=== PATIENT | female | born 1935 | race Caucasian/White ===

== ENCOUNTER 2017-01-30 06:44 | Day surgery (SDC) | payer MEDICARE, BC ==
[~2017-01-30 06:44] MED LIST: Lactated Ringers 1,000 ML IV SCH; Lidocaine 1%/Sod Bicarbonate in NS 8.4% 1 ML Syringe PRN; Sodium Chloride 0.9% 10 ML Syringe FLUSH PRN
[2017-01-30] MEDS ORDERED: Lidocaine 1% 4 ML ONE (07:19)
[2017-01-30] MEDS ORDERED: Ondansetron 4 MG/2 ML SDV ONE (07:19)
[2017-01-30] MEDS ORDERED: fentaNYL 100 MCG/2 ML SDV ONE (07:20)
[2017-01-30] MEDS ORDERED: Propofol 200 MG/20 ML SDV ONE ×2 (07:20→09:09)
--- NOTE | 2017-01-30 07:38 | PCM.PREANE ---
Preanesthetic Assessment - Procedure Proposed Procedure: EGD Colonoscopy - Anesthesia/Transfusion/Family Hx Anesthesia History: Prior Anesthesia Without Reaction Family History of Anesthesia Reaction: No - Review of Systems General: No Symptoms Pulmonary: No Symptoms Cardiovascular: No Symptoms Gastrointestinal: No Symptoms Neurological: No Symptoms Other: Reports: Easy Bruising - Physical Assessment NPO Status Date: 01/29/17 NPO Status Time: 21:45 O2 Sat by Pulse Oximetry: 97 Respiratory Rate: 16 Vital Signs: Last Vital Signs Temp 36.6 C 01/30/17 07:00 Pulse 63 01/30/17 07:00 Resp 16 01/30/17 07:00 BP 141/63 H 01/30/17 07:00 Pulse Ox 97 01/30/17 07:00 Height: 1.6 m Weight: 77.564 kg ASA Class: 3 Mental Status: Alert & Oriented x3 Airway Class: Mallampati = 2 Dentition: Reports: Normal Dentition Thyro-Mental Finger Breadths: 2 Mouth Opening Finger Breadths: 2 ROM/Head Extension: Full Lungs: Clear to Auscultation, Normal Respiratory Effort Cardiovascular: Regular Rate, Regular Rhythm - Lab Values: Reviewed - Allergies Allergies/Adverse Reactions: Allergies Allergy/AdvReac Type Severity Reaction Status Date / Time propoxyphene HCl Allergy Anaphylactic Verified 01/27/17 10:24 [From Darvon] Shock Penicillins AdvReac Syncope Verified 01/27/17 11:04 - Anesthesia Plan Pre-Op Medication Ordered: None Beta Debby: Metoprolol Med Last Dose Date: 01/30/17 Med Last Dose Time: 06:00 - Acknowledgements Anesthesia Type Planned: MAC Pt an Appropriate Candidate for the Planned Anesthesia: Yes Alternatives and Risks of Anesthesia Discussed w Pt/Guardian: Yes Pt/Guardian Understands and Agrees with Anesthesia Plan: Yes PreAnesthesia Questionnaire HEENT History: Reports: Other (See Below) Other HEENT History: wears glasses Cardiovascular History: Reports: CAD, High Cholesterol, Hypertension, Stents Respiratory History: Reports: None Gastrointestinal History: Reports: Diverticulosis, GERD, Hemorrhoids Genitourinary History: Reports: Urinary Incontinence, Other (See Below) Other Genitourinary History: nocturia [employer] History: Reports: None Musculoskeletal History: Reports: Arthritis Psychiatric History: Reports: Other (See Below) Other Psychiatric History: insomnia Endocrine/Metabolic History: Reports: None Hematologic History: Reports: None Immunologic History: Reports: None Oncologic (Cancer) History: Reports: Breast Dermatologic History: Reports: None - Past Surgical History Head Surgeries/Procedures: Reports: None HEENT Surgical History: Reports: Cataract Surgery Respiratory Surgical History: Reports: None GI Surgical History: Reports: Cholecystectomy, Colonoscopy, Hernia Repair/Other Female Surgical History: Reports: Hysterectomy, Other (See Below) Other Female Surgeries/Procedures: bladder sling Endocrine Surgical History: Reports: None Neurological Surgical History: Reports: Spinal Fusion Other Neurological Surgeries/Procedures: c1c2 fusion Musculoskeletal Surgical History: Reports: Other (See Below) Other Musculoskeletal Surgeries/Procedures:: pelvic fracture, L1-L5 surgeryc, L 2nd finger joint replacement, bilateral total knee replacements, bilateral shoulder rotator cuff repairs, hammer toe correction, R thumb tendon surgery, ulnar nerve transposition Oncologic Surgical History: Reports: Mastectomy Dermatological Surgical History: Reports: None - SUBSTANCE USE Smoking Status *Q: Never Smoker Second Hand Smoke Exposure: No Days Per Week of Alcohol Use: 0 Recreational Drug Use History: No - HOME MEDS Home Medications: Home Meds Aspirin [Tobin Chewable Aspirin] 81 mg PO DAILY 09/25/13 [History] Clopidogrel [Plavix] 75 mg PO DAILY 09/25/13 [History] Desipramine 10 mg PO BEDTIME 09/25/13 [History] Fluticasone Propionate [Flonase] 50 mcg ZAIN DAILY 09/25/13 [History] Hydrochlorothiazide 25 mg PO DAILY 09/25/13 [History] Losartan [Cozaar] 50 mg PO DAILY 09/25/13 [History] Magnesium Chloride [Mag-64] 1 tab-cap PO DAILY 09/25/13 [History] Multivitamin [Multivitamins] 1 each PO DAILY 09/25/13 [History] Potassium Chloride [Klor-Con 10] 20 meq PO BID 09/25/13 [History] Tolterodine Tartrate [Detrol LA] 4 mg PO DAILY 09/25/13 [History] Ubidecarenone [Coenzyme Q10] 100 mg PO DAILY 09/25/13 [History] Zoledronic Acid in Water [Reclast] 1 ampule IV ASDIRECTED 09/25/13 [History] traZODone 150 mg PO BEDTIME 09/25/13 [History] Metoprolol Succinate [Toprol XL] 25 mg PO DAILY 10/23/13 [History] Cholecalciferol (Vitamin D3) [Vitamin D3] 1,000 unit PO DAILY 01/27/17 [History] Levothyroxine [Synthroid] 50 mcg PO DAILY 01/27/17 [History] Rosuvastatin [Crestor] 5 mg PO DAILY 01/27/17 [History] - CURRENT (IN HOUSE) MEDS Current Meds: Current Medications Lactated Ringer's (Ringers, Lactated) 1,000 mls @ 125 mls/hr IV ASDIRECTED PATY Stop: 01/30/17 23:00 Last Admin: 01/30/17 07:10 Dose: 125 mls/hr Lidocaine/Sodium Bicarbonate (Buffered Lidocaine 1% In Ns 8.4%) 0.25 ml .XX ONETIME PRN PRN Reason: Prior to IV Start Stop: 01/30/17 18:00 Last Admin: 01/30/17 07:10 Dose: 0.25 ml Sodium Chloride (Saline Flush) 10 ml FLUSH ASDIRECTED PRN PRN Reason: Keep Vein Open Stop: 01/30/17 18:00 Discontinued Medications Fentanyl (Sublimaze) Confirm Administered Dose 100 mcg .ROUTE .STK-MED ONE Stop: 01/30/17 07:21 Lidocaine HCl (Xylocaine-Mpf 1%) Confirm Administered Dose 4 mls @ as directed .ROUTE .STK-MED ONE Stop: 01/30/17 07:20 Ondansetron HCl (Zofran) Confirm Administered Dose 4 mg .ROUTE .STK-MED ONE Stop: 01/30/17 07:20 Propofol (Diprivan 20 Ml) Confirm Administered Dose 400 mg .ROUTE .STK-MED ONE Stop: 01/30/17 07:21
--- NOTE | 2017-01-30 09:17 | PCM.OPNOTE ---
- General Post-Op/Procedure Note Date of Surgery/Procedure: 01/30/17 Operative Procedure(s): EGD with bx and colonoscopy with polypectomy Pre Op Diagnosis: nausea and rectal bleeding Post-Op Diagnosis: Same Anesthesia Technique: MAC Primary Surgeon: Terry Pemberton EBL in mLs: 0 Complications: None Condition: Good
--- NOTE | 2017-01-30 09:26 | PCM48HPAN ---
Post Anesthesia Note - EVALUATION WITHIN 48HRS OF ANESTHETIC Vital Signs in Normal Range: Yes Patient Participated in Evaluation: Yes Respiratory Function Stable: Yes Airway Patent: Yes Cardiovascular Function Stable: Yes Hydration Status Stable: Yes Pain Control Satisfactory: Yes Nausea and Vomiting Control Satisfactory: Yes Mental Status Recovered: Yes
[2017-01-30 09:32] VITALS: BP 114/38
[2017-01-30] MEDS ORDERED: Lactated Ringers 1,000 ML ONE (09:36)
--- NOTE | 2017-01-30 13:46 | OR ---
DATE OF OPERATION: 01/30/2017 SURGEON: Terry Pemberton MD PREOPERATIVE DIAGNOSIS: Rectal bleeding. POSTOPERATIVE DIAGNOSIS: Rectal bleeding. OPERATION PERFORMED: Colonoscopy to cecum with removal of a diminutive polyp in the ascending colon. FINDINGS: There was a diminutive polyp in the ascending colon. There was no angiodysplasias, large tumor masses, ulcerations, diverticulum, or notable hemorrhoids. ANESTHESIA: Procedure was done under IV sedation. DESCRIPTION OF PROCEDURE: The patient was taken to the endoscopy room, having been connected to monitoring equipment for upper GI endoscopy and given IV sedation, this was continued for colonoscopy. She was placed in left lateral position. Perianal area was inspected and was normal. Rectal exam showed good sphincter tone. A video Olympus colonoscope was then introduced into the rectum and threaded up without problem to the cecum, where the appendicular orifice, ileocecal valve was noted. Prep was good. [place] [employer] score grade B with particulate matter in the cecum, some in the splenic flexure and sigmoid colon, and rectum that could not be totally aspirated. The scope was then slowly withdrawn showing the cecum, ascending colon, transverse colon, descending colon, sigmoid colon, and rectum. Retroflexed view was done. The polyp in the ascending colon, diminutive, was noted and this was lassoed with cautery snare, removed and retrieved and sent to pathology. The base was clean and it was completely removed. The patient tolerated the procedure and was sent to recovery room in a stable condition. She will be followed up with Dr. Cuellar. We will recommend that she wait 24 hours before resuming her Plavix. ESTIMATED BLOOD LOSS: MMODAL /[id number]
--- NOTE | 2017-01-30 13:46 | OR ---
DATE OF OPERATION: 01/30/2017 SURGEON: Terry Pemberton MD PREOPERATIVE DIAGNOSIS: Nausea. POSTOPERATIVE DIAGNOSIS: Nausea. OPERATION PERFORMED: Esophagogastroduodenoscopy with biopsy. FINDINGS: Large hiatal hernia. The hiatal hernia pouch has evidence of inflammation by the presence of erythema. Area of the hiatal hernia pouch was biopsied. GE junction was located at 30 cm. Did not see any pathology there. The hiatus shows incompetence. The antrum and body of the stomach have a lot of erythema suggesting chronic gastritis. Biopsies were taken of the antrum. The second portion of the duodenum, duodenal bulb, pyloric channel, and balance of the esophagus were free of any acute disease. ANESTHESIA: Procedure was done under IV sedation. DESCRIPTION OF PROCEDURE: The patient was taken to the GI room, placed in a supine position, connected to monitoring equipment, given IV sedation, and placed in left lateral position with bite block in place. A video Olympus gastroscope placed in the posterior oropharynx, under direct vision, threaded past the cricopharyngeus, down the esophagus, and into the stomach. The stomach was insufflated and the scope passed through the pylorus to the second portion of the duodenum. It was then slowly withdrawn showing normal second portion of the duodenum, the duodenal bulb, and pyloric channel. Antrum, body, and cardia of the stomach were viewed showing a lot of erythema, and this was biopsied. No acute ulcerations were seen. Also, the J-maneuver showed an incompetent hiatus and a good portion of the fundus and the cardia above the diaphragm. She had a large hiatal hernia which was fixed and scope withdrawn to the hiatal hernia pouch, which was biopsied, then followed by GE junction which was biopsied. The GE junction did not show any acute disease. Rest of the esophagus was viewed as the scope was withdrawn and was unremarkable. The patient tolerated the procedure. IV sedation will be continued for colonoscopy. Biopsy was sent to pathology in a labeled container. ESTIMATED BLOOD LOSS: MMODAL /[id number]
== END 2017-01-30 09:58 | disposition home or self-care (01) ==
LOC: JD.SDS 06:44
PROVIDERS: ATTEND Surgery
DX: D12.2 Benign neoplasm of ascending colon (principal); B33.20 Viral carditis, unspecified; I25.10 Atherosclerotic heart disease of native coronary artery without angina pectoris; I10 Essential (primary) hypertension; E78.5 Hyperlipidemia, unspecified; K21.9 Gastro-esophageal reflux disease without esophagitis; E03.9 Hypothyroidism, unspecified; Z95.5 Presence of coronary angioplasty implant and graft; Z88.0 Allergy status to penicillin; Z88.8 Allergy status to other drugs, medicaments and biological substances; Z90.49 Acquired absence of other specified parts of digestive tract; Z98.890 Other specified postprocedural states; Z96.612 Presence of left artificial shoulder joint; Z96.611 Presence of right artificial shoulder joint; Z79.82 Long term (current) use of aspirin; Z79.899 Other long term (current) drug therapy
CPT/HCPCS: 43239; 45385; J2405; J7120; 00810; 88305; J2704; J3010

== ENCOUNTER 2022-01-31 08:36 | Emergency (ER) | payer MEDICARE, BC ==
[2022-01-31] MEDS ORDERED: traMADol 50 MG Tab PO ONE (09:08)
[2022-01-31] MEDS ORDERED: Orphenadrine 100 MG Tab.ER PO STA (09:08)
[2022-01-31 12:45] VITALS: BP 160/74; PULSE 62
== END 2022-01-31 12:40 | disposition home or self-care (01) ==
LOC: JD.ED 08:36
DX: M25.562 Pain in left knee (principal); I10 Essential (primary) hypertension; E78.00 Pure hypercholesterolemia, unspecified; I25.10 Atherosclerotic heart disease of native coronary artery without angina pectoris; K21.9 Gastro-esophageal reflux disease without esophagitis; Z88.0 Allergy status to penicillin; Z88.8 Allergy status to other drugs, medicaments and biological substances; Z79.82 Long term (current) use of aspirin; Z79.01 Long term (current) use of anticoagulants; Z79.899 Other long term (current) drug therapy
CPT/HCPCS: 73562; 99283; A9270

== ENCOUNTER 2022-07-06 07:56 | Day surgery (SDC) | payer MEDICARE, BC ==
[~2022-07-06 07:56] MED LIST changes: +Lidocaine 1%/Sod Bicarbonate in NS 8.4% 1 ML Syringe IDERM PRN; -Lidocaine 1%/Sod Bicarbonate in NS 8.4% 1 ML Syringe PRN; +Sodium Chloride 0.9% 10 ML Syringe FLUSH SCH
[2022-07-06] MEDS ORDERED: Propofol 200 MG/20 ML SDV ONE ×3 (09:11→09:49)
[2022-07-06] MEDS ORDERED: Lidocaine 1% 4 ML ONE (09:12)
[2022-07-06 10:55] VITALS: BP 161/62; PULSE 60
== END 2022-07-06 10:44 | disposition home or self-care (01) ==
LOC: JD.SDS 07:56
PROVIDERS: ATTEND Surgery
DX: Z12.11 Encounter for screening for malignant neoplasm of colon (principal); D12.2 Benign neoplasm of ascending colon; D12.3 Benign neoplasm of transverse colon; K64.8 Other hemorrhoids; K21.9 Gastro-esophageal reflux disease without esophagitis; M81.0 Age-related osteoporosis without current pathological fracture; E78.5 Hyperlipidemia, unspecified; I10 Essential (primary) hypertension; I25.119 Atherosclerotic heart disease of native coronary artery with unspecified angina pectoris; M19.90 Unspecified osteoarthritis, unspecified site; D84.9 Immunodeficiency, unspecified; E78.00 Pure hypercholesterolemia, unspecified; E03.9 Hypothyroidism, unspecified; Z95.5 Presence of coronary angioplasty implant and graft; Z86.010 Personal history of colon polyps; Z80.0 Family history of malignant neoplasm of digestive organs; Z98.890 Other specified postprocedural states; Z98.1 Arthrodesis status; Z88.0 Allergy status to penicillin; Z88.5 Allergy status to narcotic agent; Z79.899 Other long term (current) drug therapy; Z90.49 Acquired absence of other specified parts of digestive tract
CPT/HCPCS: 36415; 45380; 80051; J2704; J7120; 88305

== ENCOUNTER 2022-12-04 17:17 | Emergency (ER) | payer MEDICARE, BC ==
[2022-12-04] MEDS ORDERED: Morphine 2 MG/ML SYRINGE IVPUSH ONE (17:58)
[2022-12-04 18:04] LABS: BASOPHILS ABSOLUTE AUTO 0.04 K/mm3 (0.01-0.08); BASOPHILS PERCENT AUTO 0.6 % (0.1-1.2); EOSINOPHILS ABSOLUTE AUTO 0.14 K/mm3 (0.04-0.36); EOSINOPHILS PERCENT AUTO 2.1 (0.7-5.8); HEMATOCRIT 38.1 % (34.1-44.9); HEMOGLOBIN 11.9 gm/dl (11.2-15.7); IMMATURE GRAN ABSOLUTE AUTO 0.01 K/mm3 (0.00-0.10); IMMATURE GRAN PERCENT AUTO 0.1 % (<=1.0); LYMPHOCYTES ABSOLUTE AUTO 1.56 K/mm3 (1.18-3.74); LYMPHOCYTES PERCENT AUTO 23.3 % (19.3-51.7); MEAN CORPUSCULAR HGB CONC 31.2 g/dl (32.2-35.5); MEAN CORPUSCULAR VOLUME 99.2 fl (79.4-94.8); MEAN PLATELET VOLUME 10.3 fl (9.4-12.3); MONOCYTES ABSOLUTE AUTO 0.66 K/mm3 (0.24-0.36); MONOCYTES PERCENT AUTO 9.9 % (4.7-12.5); NEUTROPHILS ABSOLUTE AUTO 4.28 K/mm3 (1.56-6.13); PLATELET COUNT,PLT 316 K/mm3 (182-369); RED BLOOD CELL COUNT 3.84 M/mm3 (3.98-5.22); WHITE BLOOD CELL COUNT,WBC 6.69 K/mm3 (3.98-10.04)
[2022-12-04 18:24] LABS: A/G RATIO 0.9 (1-2); ALBUMIN 3.3 g/dl (3.4-5.0); ANION GAP 10.2 (5-15); BILIRUBIN TOTAL 0.3 mg/dL (0.2-1.0); C-REACTIVE PROTEIN 2.4 mg/dL (<1.0); EST CRCL DRUG DOSING (CG) 29.91 mL/min; POTASSIUM,K 4.2 mEq/L (3.5-5.1); PROTEIN TOTAL,TP 7.2 g/dl (6.4-8.2)
[2022-12-04 19:50] VITALS: BP 176/67; PULSE 60
== END 2022-12-04 19:50 | disposition home or self-care (01) ==
LOC: JD.ED 17:17
DX: R07.89 Other chest pain (principal); I25.10 Atherosclerotic heart disease of native coronary artery without angina pectoris; E78.00 Pure hypercholesterolemia, unspecified; I10 Essential (primary) hypertension; K21.9 Gastro-esophageal reflux disease without esophagitis; E03.9 Hypothyroidism, unspecified; Z79.899 Other long term (current) drug therapy; Z79.82 Long term (current) use of aspirin
CPT/HCPCS: 36415; 80053; 85025; 86140; 93005; 96374; 99285; J2270; 93010; 99284

== ENCOUNTER 2022-12-12 12:53 | Observation (INO) | payer MEDICARE, BC ==
[2022-12-12] MEDS ORDERED: Sodium Chloride 0.9% 10 ML Syringe FLUSH PRN (13:39)
[2022-12-12 13:59] LABS: BASE EXCESS ARTERIAL -3.1 (-2-2.0); BICARBONATE,ARTERIAL 17.9 meq/L (22.0-26.0); O2 SATURATION ARTERIAL 96.2 % (96.0-97.0); PCO2 ARTERIAL 22.4 mmHg (35.0-45.0)
[2022-12-12] MEDS ORDERED: Lactated Ringers 1,000 ML IV ONE (14:21)
[2022-12-12] MEDS ORDERED: LORazepam 2 MG/ML SDV IVPUSH ONE (14:29)
[2022-12-12 14:51] LABS: BASOPHILS ABSOLUTE AUTO 0.03 K/mm3 (0.01-0.08); BASOPHILS PERCENT AUTO 0.4 % (0.1-1.2); EOSINOPHILS ABSOLUTE AUTO 0.02 K/mm3 (0.04-0.36); EOSINOPHILS PERCENT AUTO 0.3 (0.7-5.8); HEMATOCRIT 42.6 % (34.1-44.9); HEMOGLOBIN 13.8 gm/dl (11.2-15.7); IMMATURE GRAN ABSOLUTE AUTO 0.01 K/mm3 (0.00-0.10); IMMATURE GRAN PERCENT AUTO 0.1 % (<=1.0); LYMPHOCYTES ABSOLUTE AUTO 1.49 K/mm3 (1.18-3.74); LYMPHOCYTES PERCENT AUTO 18.9 % (19.3-51.7); MEAN CORPUSCULAR HEMOGLOBIN 31.2 pg (25.6-32.2); MEAN CORPUSCULAR HGB CONC 32.4 g/dl (32.2-35.5); MEAN CORPUSCULAR VOLUME 96.4 fl (79.4-94.8); MEAN PLATELET VOLUME 10.5 fl (9.4-12.3); MONOCYTES ABSOLUTE AUTO 0.79 K/mm3 (0.24-0.36); NEUTROPHILS ABSOLUTE AUTO 5.53 K/mm3 (1.56-6.13); NEUTROPHILS PERCENT AUTO 70.3 % (34.0-71.1); PLATELET COUNT,PLT 296 K/mm3 (182-369); RED BLOOD CELL COUNT 4.42 M/mm3 (3.98-5.22); WHITE BLOOD CELL COUNT,WBC 7.87 K/mm3 (3.98-10.04)
[2022-12-12 15:10] LABS: INR 1.07; PROTHROMBIN TIME 11.4 SECONDS (9.7-12.0)
[2022-12-12 15:21] LABS: A/G RATIO 0.8 (1-2); ALBUMIN 3.3 g/dl (3.4-5.0); ANION GAP 17.3 (5-15); BILIRUBIN TOTAL 0.4 mg/dL (0.2-1.0); BUN/CREATININE RATIO 19.1 (14-18); C-REACTIVE PROTEIN 0.2 mg/dL (<1.0); CALCIUM 9.4 mg/dL (8.5-10.1); CREATININE 1.1 mg/dL (0.55-1.02); EST CRCL DRUG DOSING (CG) 27.19 mL/min; MAGNESIUM 1.7 mg/dL (1.8-2.4); POTASSIUM,K 3.3 mEq/L (3.5-5.1); PROTEIN TOTAL,TP 7.6 g/dl (6.4-8.2); TSH 1.474 uIU/mL (0.358-3.74)
[2022-12-12 15:25] LABS: LACTIC ACID 3.7 mmol/L (0.4-2.0)
[2022-12-12] MEDS ORDERED: Ondansetron 4 MG/2 ML SDV IVPUSH ONE (15:48)
[2022-12-12 16:19] LABS: APPEARANCE,URINE CLEAR (Clear); BILIRUBIN,URINE NEGATIVE (Negative); COLOR,URINE YELLOW (Yellow); GLUCOSE,URINE NEGATIVE (Negative); KETONES,URINE NEGATIVE (Negative); LEUKOCYTE ESTERASE,URINE NEGATIVE (Negative); NITRITE,URINE NEGATIVE (Negative); OCCULT BLOOD,URINE NEGATIVE (Negative); PH,URINE 6.5 (5.0-8.0); PROTEIN,URINE NEGATIVE (Negative); UROBILINOGEN,URINE 0.2 (0.2-1.0)
[2022-12-12 16:41] LABS: BACTERIA,URINE FEW /hpf (FEW); MUCUS,URINE FEW /hpf (FEW); RBC,URINE 0-5 /hpf (0-5); SQUAMOUS EPITHELIAL CELLS,UR NOT SEEN /hpf (0-5); WBC,URINE NOT SEEN /hpf (0-5)
[2022-12-12 16:58] LABS: CORONAVIRUS COVID-19 NAA NEGATIVE (NEGATIVE); INFLUENZA A NAA NEGATIVE (NEGATIVE)
[2022-12-12] MEDS ORDERED: Morphine 2 MG/ML SYRINGE IVPUSH PRN (17:08)
[2022-12-12] MEDS ORDERED: Temazepam 7.5 MG Cap PO PRN (17:08)
[2022-12-12] MEDS ORDERED: Ondansetron 4 MG/2 ML SDV IV PRN (17:08)
[2022-12-12] MEDS ORDERED: Acetaminophen 325 MG Tab PO PRN (17:08)
[2022-12-12] MEDS: Lactated Ringers 1,000 ML IV SCH (18:24)
[2022-12-12] MEDS: Heparin Sodium 5,000 Units/ML Vial SUBCUT SCH (18:24)
[2022-12-12] MEDS ORDERED: Promethazine 25 MG Tab PO PRN (21:13)
[2022-12-13] MEDS: Lactated Ringers 1,000 ML IV SCH (02:17)
[2022-12-13] MEDS: Heparin Sodium 5,000 Units/ML Vial SUBCUT SCH ×2 (02:17→09:01)
[2022-12-13 05:55] LABS: BASOPHILS ABSOLUTE AUTO 0.05 K/mm3 (0.01-0.08); BASOPHILS PERCENT AUTO 0.9 % (0.1-1.2); EOSINOPHILS ABSOLUTE AUTO 0.12 K/mm3 (0.04-0.36); EOSINOPHILS PERCENT AUTO 2.1 (0.7-5.8); IMMATURE GRAN ABSOLUTE AUTO 0.01 K/mm3 (0.00-0.10); IMMATURE GRAN PERCENT AUTO 0.2 % (<=1.0); LYMPHOCYTES ABSOLUTE AUTO 2.15 K/mm3 (1.18-3.74); LYMPHOCYTES PERCENT AUTO 37.6 % (19.3-51.7); MEAN CORPUSCULAR HEMOGLOBIN 31.2 pg (25.6-32.2); MEAN CORPUSCULAR HGB CONC 32.2 g/dl (32.2-35.5); MEAN CORPUSCULAR VOLUME 96.8 fl (79.4-94.8); MEAN PLATELET VOLUME 10.7 fl (9.4-12.3); MONOCYTES ABSOLUTE AUTO 0.63 K/mm3 (0.24-0.36); NEUTROPHILS ABSOLUTE AUTO 2.76 K/mm3 (1.56-6.13); NEUTROPHILS PERCENT AUTO 48.2 % (34.0-71.1); PLATELET COUNT,PLT 222 K/mm3 (182-369); RED BLOOD CELL COUNT 3.72 M/mm3 (3.98-5.22); WHITE BLOOD CELL COUNT,WBC 5.72 K/mm3 (3.98-10.04)
[2022-12-13 06:07] LABS: HEMOGLOBIN 11.6 gm/dl (11.2-15.7)
[2022-12-13 06:23] LABS: A/G RATIO 0.8 (1-2); ALBUMIN 2.9 g/dl (3.4-5.0); ANION GAP 12.6 (5-15); BILIRUBIN TOTAL 0.3 mg/dL (0.2-1.0); CALCIUM 8.8 mg/dL (8.5-10.1); EST CRCL DRUG DOSING (CG) 29.91 mL/min; MAGNESIUM 1.6 mg/dL (1.8-2.4); POTASSIUM,K 3.6 mEq/L (3.5-5.1); PROTEIN TOTAL,TP 6.4 g/dl (6.4-8.2)
[2022-12-13] MEDS ORDERED: Potassium Chloride 20 MEQ Tab.ER PO ONE (08:11)
[2022-12-13] MEDS ORDERED: Magnesium Sulfate/Water 2 GM in Premix Bag 1 BAG IV ONE (08:30)
[2022-12-13] MEDS ORDERED: Magnesium Oxide 400 MG Tab PO SCH (09:00)
[2022-12-13 11:34] VITALS: BP 150/86; PULSE 71
[2022-12-13] MEDS ORDERED: Losartan 100 MG Tab PO SCH (12:00)
[2022-12-13] MEDS ORDERED: Metoprolol Succinate 25 MG Tab.ER PO SCH (12:00)
[2022-12-13] MEDS ORDERED: Hydroxychloroquine 200 MG Tab PO SCH (12:00)
[2022-12-13] MEDS ORDERED: Isosorbide Mononitrate 60 MG Tab.ER PO SCH (12:00)
[2022-12-13] MEDS ORDERED: Oxybutynin 5 MG Tab.ER PO SCH (12:00)
[2022-12-13] MEDS ORDERED: Pregabalin 25 MG Cap PO SCH (20:00)
[2022-12-13] MEDS ORDERED: traZODone 50 MG Tab PO SCH (21:00)
[2022-12-14] MEDS ORDERED: Levothyroxine 50 MCG Tab PO SCH (06:00)
== END 2022-12-13 12:45 | disposition home or self-care (01) ==
LOC: JD.ED 12:53 → JD.MS 17:09
PROVIDERS: ADMIT Internal Medicine; ATTEND Internal Medicine
DX: R11.2 Nausea with vomiting, unspecified (principal); K57.30 Diverticulosis of large intestine without perforation or abscess without bleeding; K21.9 Gastro-esophageal reflux disease without esophagitis; K64.9 Unspecified hemorrhoids; M19.90 Unspecified osteoarthritis, unspecified site; M81.0 Age-related osteoporosis without current pathological fracture; E03.9 Hypothyroidism, unspecified; E86.0 Dehydration; Z91.048 Other nonmedicinal substance allergy status; Z88.5 Allergy status to narcotic agent; Z88.0 Allergy status to penicillin; Z79.82 Long term (current) use of aspirin; Z79.899 Other long term (current) drug therapy; Z79.890 Hormone replacement therapy; Z90.49 Acquired absence of other specified parts of digestive tract
CPT/HCPCS: 0240U; 36415; 36600; 71045; 80053; 81001; 82803; 83605; 83735; 83880; 84443; 84484; 85025; 85379; 85610; 86140; 87040; 93005; 96361; 96374; 96375; 97161; 97166; 99285; A9270; J1644; J2060; J2405; J3475; J3490; J7120; J8597

== ENCOUNTER 2023-07-22 13:24 | Emergency (ER) | payer MEDICARE, BC ==
[2023-07-22] MEDS ORDERED: Nitroglycerin/D5W 25 MG/250 ML BOTTLE IV SCH (14:00)
[2023-07-22] MEDS ORDERED: Sodium Chloride 0.9% 1,000 ML IV SCH (14:00)
[2023-07-22] MEDS ORDERED: Aspirin 81 MG Tab.Chew PO ONE (14:06)
[2023-07-22 14:10] LABS: BASOPHILS ABSOLUTE AUTO 0.1 K/mm3 (0.0-0.2); BASOPHILS PERCENT AUTO 1.4 % (0.0-1.0); EOSINOPHILS ABSOLUTE AUTO 0.2 K/mm3 (0.0-0.4); EOSINOPHILS PERCENT AUTO 3.4 % (0.0-6.0); HEMATOCRIT 37.8 % (37.0-47.0); HEMOGLOBIN 12.1 gm/dl (12.0-16.0); IMMATURE GRAN ABSOLUTE AUTO 0.01 K/mm3 (0.00-0.05); IMMATURE GRAN PERCENT AUTO 0.2 % (0.0-0.4); LYMPHOCYTES ABSOLUTE AUTO 0.5 K/mm3 (1.0-4.8); LYMPHOCYTES PERCENT AUTO 10.1 % (24.0-44.0); MEAN CORPUSCULAR HEMOGLOBIN 31.8 pg (28.0-32.0); MEAN CORPUSCULAR VOLUME 99.5 fl (83.0-99.0); MEAN PLATELET VOLUME 10.4 fl (9.4-12.3); MONOCYTES ABSOLUTE AUTO 0.5 K/mm3 (0.0-0.8); MONOCYTES PERCENT AUTO 10.5 % (0.0-8.0); NEUTROPHILS ABSOLUTE AUTO 3.7 K/mm3 (1.8-7.7); NEUTROPHILS PERCENT AUTO 74.4 % (41.0-71.0); PLATELET COUNT,PLT 172 K/mm3 (150-400); WHITE BLOOD CELL COUNT,WBC 4.93 K/mm3 (3.9-11.3)
[2023-07-22 14:29] LABS: INR 1.07; PROTHROMBIN TIME 11.4 SECONDS (9.7-12.0)
[2023-07-22 14:31] LABS: PTT,PARTIAL THROMBOPLSTIN TIME 28.5 SECONDS (21.7-31.4)
[2023-07-22 14:42] LABS: A/G RATIO 0.8 (1-2); ALBUMIN 2.9 g/dl (3.4-5.0); ANION GAP 9.7 (5-15); BILIRUBIN TOTAL 0.3 mg/dL (0.2-1.0); BUN/CREATININE RATIO 20.9 (14-18); C-REACTIVE PROTEIN 2.5 mg/dL (<1.0); CALCIUM 8.6 mg/dL (8.5-10.1); CREATININE 1.1 mg/dL (0.55-1.02); EST CRCL DRUG DOSING (CG) 29.81 mL/min; MAGNESIUM 1.8 mg/dL (1.8-2.4); POTASSIUM,K 3.7 mEq/L (3.5-5.1); PROTEIN TOTAL,TP 6.6 g/dl (6.4-8.2)
[2023-07-22] MEDS ORDERED: Iopamidol 755 Mg/ML 100 ML Bottle IVPUSH ONE (14:58)
[2023-07-22] MEDS ORDERED: Sodium Chloride 0.9% 100 ML IV SCH (15:00)
[2023-07-22 18:11] VITALS: BP 150/74; PULSE 55
== END 2023-07-22 17:10 | disposition home or self-care (01) ==
LOC: JD.ED 13:24
DX: R07.89 Other chest pain (principal); K44.0 Diaphragmatic hernia with obstruction, without gangrene; I10 Essential (primary) hypertension; E78.00 Pure hypercholesterolemia, unspecified; I25.10 Atherosclerotic heart disease of native coronary artery without angina pectoris; E03.9 Hypothyroidism, unspecified; Z79.899 Other long term (current) drug therapy; Z90.49 Acquired absence of other specified parts of digestive tract; Z90.710 Acquired absence of both cervix and uterus; Z88.5 Allergy status to narcotic agent; Z91.048 Other nonmedicinal substance allergy status; Z88.0 Allergy status to penicillin
CPT/HCPCS: 36415; 71045; 71275; 80053; 83735; 83880; 84443; 84484; 85025; 85379; 85610; 85730; 86140; 93005; 96365; 96366; 99285; A9270; J2305; J3490; J7030; Q9967

== ENCOUNTER 2023-10-02 01:23 | Emergency (ER) | payer MEDICARE, BC ==
[2023-10-02] MEDS: Aspirin 81 MG Tab.Chew PO ONE (01:49)
[2023-10-02 01:50] LABS: BASOPHILS ABSOLUTE AUTO 0.1 K/mm3 (0.0-0.2); EOSINOPHILS ABSOLUTE AUTO 0.2 K/mm3 (0.0-0.4); EOSINOPHILS PERCENT AUTO 3.1 % (0.0-6.0); HEMATOCRIT 39.5 % (37.0-47.0); HEMOGLOBIN 13.3 gm/dl (12.0-16.0); IMMATURE GRAN ABSOLUTE AUTO 0.01 K/mm3 (0.00-0.05); IMMATURE GRAN PERCENT AUTO 0.2 % (0.0-0.4); LYMPHOCYTES ABSOLUTE AUTO 1.6 K/mm3 (1.0-4.8); LYMPHOCYTES PERCENT AUTO 31.6 % (24.0-44.0); MEAN CORPUSCULAR HEMOGLOBIN 31.7 pg (28.0-32.0); MEAN CORPUSCULAR HGB CONC 33.7 g/dl (32.0-36.0); MEAN CORPUSCULAR VOLUME 94.3 fl (83.0-99.0); MEAN PLATELET VOLUME 9.8 fl (9.4-12.3); MONOCYTES ABSOLUTE AUTO 0.4 K/mm3 (0.0-0.8); NEUTROPHILS ABSOLUTE AUTO 2.7 K/mm3 (1.8-7.7); NEUTROPHILS PERCENT AUTO 55.1 % (41.0-71.0); PLATELET COUNT,PLT 225 K/mm3 (150-400); RED BLOOD CELL COUNT 4.19 M/mm3 (4.10-5.30); WHITE BLOOD CELL COUNT,WBC 4.91 K/mm3 (3.9-11.3)
[2023-10-02] MEDS: hydrALAZINE 20 MG/ML SDV IVPUSH ONE (01:50)
[2023-10-02 02:19] LABS: INR 1.02; PROTHROMBIN TIME 10.9 SECONDS (9.7-12.0)
[2023-10-02 02:21] LABS: PTT,PARTIAL THROMBOPLSTIN TIME 28.2 SECONDS (21.7-31.4)
[2023-10-02 02:23] LABS: D-DIMER QUANTITATIVE 1.16 mg/L (0.19-0.50)
[2023-10-02 02:34] LABS: LACTIC ACID 0.7 mmol/L (0.4-2.0)
[2023-10-02 02:40] LABS: ALBUMIN 3.6 g/dl (3.4-5.0); ANION GAP 11.7 (5-15); BILIRUBIN TOTAL 0.2 mg/dL (0.2-1.0); BUN/CREATININE RATIO 20.9 (14-18); CREATININE 1.1 mg/dL (0.55-1.02); EST CRCL DRUG DOSING (CG) 27.96 mL/min; POTASSIUM,K 3.7 mEq/L (3.5-5.1); PROTEIN TOTAL,TP 7.2 g/dl (6.4-8.2)
[2023-10-02 04:20] VITALS: BP 148/71; PULSE 80
[2023-10-02] MEDS ORDERED: Sodium Chloride 0.9% 100 ML IV SCH (04:45)
[2023-10-02] MEDS: Iopamidol 755 Mg/ML 100 ML Bottle IVPUSH ONE (04:45)
[2023-10-02] MEDS: Sodium Chloride 0.9% 10 ML Syringe FLUSH PRN (05:04)
[2023-10-02 05:23] LABS: APPEARANCE,URINE CLEAR (Clear); BILIRUBIN,URINE NEGATIVE (Negative); COLOR,URINE YELLOW (Yellow); GLUCOSE,URINE NEGATIVE (Negative); KETONES,URINE NEGATIVE (Negative); LEUKOCYTE ESTERASE,URINE 1+ (Negative); NITRITE,URINE NEGATIVE (Negative); OCCULT BLOOD,URINE NEGATIVE (Negative); PH,URINE 7.5 (5.0-8.0); PROTEIN,URINE NEGATIVE (Negative); UROBILINOGEN,URINE 0.2 (0.2-1.0)
[2023-10-02] MEDS: cefTRIAXone 1 GM in Sodium Chloride 0.9% 100 ML IV ONE (06:30)
[2023-10-02 12:27] LABS: BACTERIA,URINE MODERATE /hpf (FEW); EPITHELIAL CELLS,URINE 0-5 /hpf (0-5); MUCUS,URINE FEW /hpf (FEW); RBC,URINE 0-5 /hpf (0-5)
== END 2023-10-02 07:22 | disposition home or self-care (01) ==
LOC: JD.ED 01:23
DX: I11.0 Hypertensive heart disease with heart failure (principal); I50.9 Heart failure, unspecified; N30.00 Acute cystitis without hematuria; I25.10 Atherosclerotic heart disease of native coronary artery without angina pectoris; J44.9 Chronic obstructive pulmonary disease, unspecified; Z95.5 Presence of coronary angioplasty implant and graft; E03.9 Hypothyroidism, unspecified; Z90.49 Acquired absence of other specified parts of digestive tract; Z90.710 Acquired absence of both cervix and uterus; Z88.0 Allergy status to penicillin; Z91.048 Other nonmedicinal substance allergy status; Z88.5 Allergy status to narcotic agent; Z88.8 Allergy status to other drugs, medicaments and biological substances
CPT/HCPCS: 36415; 71045; 71045-26; 71275; 71275-26; 80053; 81001; 83605; 83735; 83880; 84484; 85025; 85379; 85610; 85730; 87086; 93005; 93010; 96365; 96375; 99284; 99285-25; A9270-GY; J0360; J0696; J3490; Q9967

== ENCOUNTER 2023-10-30 23:28 | Emergency (ER) | payer MEDICARE, BC ==
[2023-10-30] MEDS ORDERED: Sodium Chloride 0.9% 10 ML Syringe FLUSH PRN (23:34)
[2023-10-31 00:17] LABS: BASOPHILS ABSOLUTE AUTO 0.1 K/mm3 (0.0-0.2); BASOPHILS PERCENT AUTO 0.9 % (0.0-1.0); EOSINOPHILS ABSOLUTE AUTO 0.2 K/mm3 (0.0-0.4); HEMATOCRIT 36.6 % (37.0-47.0); HEMOGLOBIN 11.9 gm/dl (12.0-16.0); IMMATURE GRAN ABSOLUTE AUTO 0.02 K/mm3 (0.00-0.05); IMMATURE GRAN PERCENT AUTO 0.4 % (0.0-0.4); LYMPHOCYTES ABSOLUTE AUTO 1.8 K/mm3 (1.0-4.8); MEAN CORPUSCULAR HGB CONC 32.5 g/dl (32.0-36.0); MEAN CORPUSCULAR VOLUME 95.3 fl (83.0-99.0); MEAN PLATELET VOLUME 9.9 fl (9.4-12.3); MONOCYTES ABSOLUTE AUTO 0.5 K/mm3 (0.0-0.8); MONOCYTES PERCENT AUTO 10.2 % (0.0-8.0); NEUTROPHILS ABSOLUTE AUTO 2.7 K/mm3 (1.8-7.7); NEUTROPHILS PERCENT AUTO 50.5 % (41.0-71.0); PLATELET COUNT,PLT 231 K/mm3 (150-400); RED BLOOD CELL COUNT 3.84 M/mm3 (4.10-5.30); WHITE BLOOD CELL COUNT,WBC 5.29 K/mm3 (3.9-11.3)
[2023-10-31 00:27] LABS: ALBUMIN 3.6 g/dl (3.4-5.0); ANION GAP 8.6 (5-15); BILIRUBIN TOTAL 0.3 mg/dL (0.2-1.0); BUN/CREATININE RATIO 23.8 (14-18); CREATININE 1.3 mg/dL (0.55-1.02); EST CRCL DRUG DOSING (CG) 23.11 mL/min; POTASSIUM,K 3.6 mEq/L (3.5-5.1); PROTEIN TOTAL,TP 7.1 g/dl (6.4-8.2)
[2023-10-31 05:46] VITALS: BP 195/75; PULSE 57
== END 2023-10-31 05:43 | disposition home or self-care (01) ==
LOC: JD.ED 23:28
DX: R07.89 Other chest pain (principal); I10 Essential (primary) hypertension; I25.10 Atherosclerotic heart disease of native coronary artery without angina pectoris; E78.00 Pure hypercholesterolemia, unspecified; E03.9 Hypothyroidism, unspecified; Z79.899 Other long term (current) drug therapy; Z88.5 Allergy status to narcotic agent; Z95.5 Presence of coronary angioplasty implant and graft; Z88.0 Allergy status to penicillin; Z88.1 Allergy status to other antibiotic agents
CPT/HCPCS: 36415; 71045; 71045-26; 80053; 83735; 84484; 85025; 93005; 93010; 99284; 99285

== ENCOUNTER 2025-04-25 13:35 | Emergency (ER) | payer MEDICARE, BC ==
[2025-04-25 14:26] LABS: APPEARANCE,URINE CLEAR (Clear); GLUCOSE,URINE NEGATIVE (Negative); OCCULT BLOOD,URINE NEGATIVE (Negative)
[2025-04-25 14:26] LABS: BASOPHILS ABSOLUTE AUTO 0.1 K/mm3 (0.0-0.2); BASOPHILS PERCENT AUTO 1.1 % (0.0-1.0); EOSINOPHILS ABSOLUTE AUTO 0.2 K/mm3 (0.0-0.4); EOSINOPHILS PERCENT AUTO 2.3 % (0.0-6.0); IMMATURE GRAN ABSOLUTE AUTO 0.03 K/mm3 (0.00-0.05); IMMATURE GRAN PERCENT AUTO 0.4 % (0.0-0.4); LYMPHOCYTES ABSOLUTE AUTO 1.6 K/mm3 (1.0-4.8); LYMPHOCYTES PERCENT AUTO 22.2 % (24.0-44.0); MEAN PLATELET VOLUME 10.0 fl (9.4-12.3); MONOCYTES ABSOLUTE AUTO 0.6 K/mm3 (0.0-0.8); MONOCYTES PERCENT AUTO 7.6 % (0.0-8.0); NEUTROPHILS ABSOLUTE AUTO 4.9 K/mm3 (1.8-7.7); NEUTROPHILS PERCENT AUTO 66.4 % (41.0-71.0); NRBC ABSOLUTE 0.00 (0.00-0.02); NRBC PERCENT 0.0 % (0.0-0.2); PLATELET COUNT,PLT 248 K/mm3 (150-400); RED BLOOD CELL COUNT 3.98 M/mm3 (4.10-5.30); WHITE BLOOD CELL COUNT,WBC 7.40 K/mm3 (3.9-11.3)
[2025-04-25 14:36] LABS: SQUAMOUS EPITHELIAL CELLS,UR 0-5 /hpf (0-5)
[2025-04-25 15:04] LABS: A/G RATIO 1.0 (1-2); ALANINE AMINOTRANSFERASE,ALT 19.0 U/L (14-59); ASPARTATE AMNIOTRANSFERASE,AST 22.0 U/L (15-37); BILIRUBIN TOTAL 0.3 mg/dL (0.2-1.0); BLOOD UREA NITROGEN,BUN 35.0 mg/dL (7-18); CARBON DIOXIDE,CO2 32.0 mEq/L (21-32); CHLORIDE,CL 105.0 mEq/L (98-107); CREATININE 1.1 mg/dL (0.55-1.02); EST CRCL DRUG DOSING (CG) 26.16 mL/min; ESTIMATED GFR 48.0 mL/min (>60); GLUCOSE RANDOM 99.0 mg/dL (70-99); POTASSIUM,K 3.8 mEq/L (3.5-5.1); PROTEIN TOTAL,TP 7.0 g/dl (6.4-8.2); SODIUM,NA 142.0 mEq/L (136-145)
[2025-04-25 16:17] VITALS: BP 193/70; PULSE 78
== END 2025-04-25 16:00 | disposition home or self-care (01) ==
LOC: JD.ED 13:35
DX: J06.9 Acute upper respiratory infection, unspecified (principal); I25.10 Atherosclerotic heart disease of native coronary artery without angina pectoris; I10 Essential (primary) hypertension; K21.9 Gastro-esophageal reflux disease without esophagitis; E03.9 Hypothyroidism, unspecified; E78.00 Pure hypercholesterolemia, unspecified; Z88.0 Allergy status to penicillin; Z88.1 Allergy status to other antibiotic agents; Z88.5 Allergy status to narcotic agent; Z79.891 Long term (current) use of opiate analgesic; Z79.899 Other long term (current) drug therapy; Z79.890 Hormone replacement therapy; Z95.5 Presence of coronary angioplasty implant and graft; Z98.49 Cataract extraction status, unspecified eye; Z90.89 Acquired absence of other organs; Z90.49 Acquired absence of other specified parts of digestive tract; Z90.710 Acquired absence of both cervix and uterus; Z90.10 Acquired absence of unspecified breast and nipple
CPT/HCPCS: 36415; 71045; 71045-26; 80053; 81001; 82550; 83735; 83880; 84484; 85025; 87428-QW; 93005; 99285